=== PATIENT | male | born 1950 | race Caucasian/White ===

== ENCOUNTER 2021-01-04 21:56 | Inpatient (IN) | payer BC ==
[~2021-01-04] VITALS: Ht 157.5 cm; Wt 57.2 kg
[2021-01-04 22:04] VITALS: Ht 157.5 cm; Wt 57.2 kg
[2021-01-04 22:50] LABS: BASOPHIL % 0.9 % (0.2-1.5); PLATELET COUNT 292 x10^3mcL (152-348); RED CELL DISTRIBUTION WIDTH 12.8 % (12.1-16.2)
[2021-01-04 22:58] LABS: CARBON DIOXIDE 27.2 mmol/L (21-32); CHLORIDE SERUM 102 mmol/L (98-107); CREATININE SERUM 0.8 mg/dL (0.7-1.3); GFR1 > 60 mL/min; GLUCOSE SERUM 101 mg/dL (74-106); SODIUM SERUM 138 mmol/L (136-145)
[2021-01-05 00:59] LABS: CHOLESTEROL/HDL RATIO 3.6
[2021-01-05 02:11] VITALS: BP 128/77
[2021-01-05] MEDS ORDERED: TAMSULOSIN HCL0.4 MG PO (03:20)
[2021-01-05 05:26] VITALS: BP 139/74
[2021-01-05 06:42] LABS: CALCIUM 8.8 mg/dL (8.5-10.1); CARBON DIOXIDE 24.9 mmol/L (21-32); CHLORIDE SERUM 103 mmol/L (98-107); CREATININE SERUM 0.8 mg/dL (0.7-1.3); GFR1 > 60 mL/min; GLUCOSE SERUM 161 mg/dL (74-106); SODIUM SERUM 137 mmol/L (136-145)
[2021-01-05 08:25] VITALS: BP 121/82
[2021-01-05 08:45] LABS: BASOPHIL % 0.4 % (0.2-1.5); PLATELET COUNT 312 x10^3mcL (152-348); RED CELL DISTRIBUTION WIDTH 12.9 % (12.1-16.2)
[2021-01-05 11:20] LABS: UA SPECIFIC GRAVITY 1.025 (1.005-1.035); microscopic required? YES; urine erythrocyte 3+ (NEGATIVE)
[2021-01-05 11:34] LABS: AMPHETAMINE QUAL UR NONE DETECTED (See below)
[2021-01-05 11:58] VITALS: BP 124/61
[2021-01-05 16:49] VITALS: BP 120/55
[2021-01-05 19:36] VITALS: BP 119/54
[2021-01-06 04:41] VITALS: BP 106/57
[2021-01-06 06:40] LABS: BASOPHIL % 0.2 % (0.2-1.5); PLATELET COUNT 318 x10^3mcL (152-348)
[2021-01-06 06:59] LABS: CALCIUM 9.1 mg/dL (8.5-10.1); CARBON DIOXIDE 25.7 mmol/L (21-32); CHLORIDE SERUM 105 mmol/L (98-107); CREATININE SERUM 0.8 mg/dL (0.7-1.3); GFR1 > 60 mL/min; GLUCOSE SERUM 116 mg/dL (74-106); MAGNESIUM 2.5 mg/dL (1.8-2.4); PHOSPHOROUS 3.8 mg/dL (2.5-4.9); POTASSIUM SERUM 4.4 mmol/L (3.5-5.1); SODIUM SERUM 138 mmol/L (136-145)
[2021-01-06 08:34] VITALS: BP 106/55
[2021-01-06 12:18] VITALS: BP 118/36
[2021-01-06 17:34] VITALS: BP 105/58
[2021-01-06 20:42] VITALS: BP 99/63
[2021-01-07 06:09] VITALS: BP 95/60
[2021-01-07 06:50] LABS: BASOPHIL % 0.1 % (0.2-1.5); PLATELET COUNT 314 x10^3mcL (152-348); RED CELL DISTRIBUTION WIDTH 12.5 % (12.1-16.2)
[2021-01-07 06:57] LABS: CALCIUM 8.7 mg/dL (8.5-10.1); CARBON DIOXIDE 26.9 mmol/L (21-32); CHLORIDE SERUM 105 mmol/L (98-107); CREATININE SERUM 0.7 mg/dL (0.7-1.3); GFR1 > 60 mL/min; GLUCOSE SERUM 125 mg/dL (74-106); MAGNESIUM 2.4 mg/dL (1.8-2.4); POTASSIUM SERUM 4.3 mmol/L (3.5-5.1); SODIUM SERUM 137 mmol/L (136-145)
[2021-01-07 08:17] VITALS: BP 127/63
[2021-01-07 12:13] VITALS: BP 104/55
[2021-01-07 18:22] VITALS: BP 126/67
[2021-01-07 19:52] VITALS: BP 131/68
[2021-01-08 05:27] VITALS: BP 114/56
[2021-01-08 07:09] LABS: BASOPHIL % 0.1 % (0.2-1.5); PLATELET COUNT 321 x10^3mcL (152-348); RED CELL DISTRIBUTION WIDTH 12.6 % (12.1-16.2)
[2021-01-08 07:10] LABS: CALCIUM 8.2 mg/dL (8.5-10.1); CARBON DIOXIDE 26.2 mmol/L (21-32); CHLORIDE SERUM 105 mmol/L (98-107); CREATININE SERUM 0.8 mg/dL (0.7-1.3); GFR1 > 60 mL/min; GLUCOSE SERUM 123 mg/dL (74-106); POTASSIUM SERUM 3.9 mmol/L (3.5-5.1); SODIUM SERUM 137 mmol/L (136-145)
[2021-01-08 08:55] VITALS: BP 141/109
[2021-01-08] MEDS ORDERED: LEV500 PO (10:32)
[2021-01-08] MEDS ORDERED: FLO4 PO (10:33)
[2021-01-08] MEDS ORDERED: MUCINEX600 MG PO (10:34)
[2021-01-08] MEDS ORDERED: MEDROL DOSEPAK4 MG PO (10:35)
[2021-01-08] MEDS ORDERED: SPIRIVA18 MC1 IH (10:58)
[2021-01-08] MEDS ORDERED: PROAIR HFA8.5 GM INH (11:05)
[2021-01-08 12:57] VITALS: BP 107/62; BP 141/109
[2021-01-08 13:04] VITALS: BP 107/62
== END 2021-01-08 16:27 | disposition home or self-care (01) | DRG 190 ==
LOC: ED 21:56 → DU 01-05 00:26
PROVIDERS: Emergency Medicine; ADMIT Internal Medicine; ATTEND Internal Medicine
DX: J44.1 Chronic obstructive pulmonary disease with (acute) exacerbation (principal); J96.00 Acute respiratory failure, unspecified whether with hypoxia or hypercapnia; R65.10 Systemic inflammatory response syndrome (SIRS) of non-infectious origin without acute organ dysfunction; K59.09 Other constipation; R33.9 Retention of urine, unspecified; Z20.822 Contact with and (suspected) exposure to COVID-19; Z88.0 Allergy status to penicillin; Z82.5 Family history of asthma and other chronic lower respiratory diseases
CPT/HCPCS: 36600; G0378; J0456; J2920; J2930; J3475; J3535; J7030; J7613; J7644

== ENCOUNTER 2021-01-10 14:36 | Emergency (ER) | payer BC ==
[~2021-01-10] VITALS: Ht 167.6 cm; Wt 57.2 kg
[~2021-01-10 14:36] MED LIST: FLO4 PO; LEV500 PO; MEDROL DOSEPAK4 MG PO; MUCINEX600 MG PO; PROAIR HFA8.5 GM INH; SPIRIVA18 MC1 IH; TAMSULOSIN HCL0.4 MG PO
[2021-01-10 15:02] VITALS: Ht 167.6 cm; Wt 57.2 kg
[2021-01-10] MEDS ORDERED: ULTRAM50 MG PO (16:50)
[2021-01-10] MEDS ORDERED: MACROBID100 MG PO (16:50)
[2021-01-10 17:56] VITALS: BP 116/59
== END 2021-01-10 17:56 | disposition home or self-care (01) ==
LOC: ED 14:36
DX: R33.9 Retention of urine, unspecified (principal); J44.9 Chronic obstructive pulmonary disease, unspecified; Z88.0 Allergy status to penicillin
CPT/HCPCS: J1885